=== PATIENT | female | born 1965 | race Caucasian/White ===

== ENCOUNTER 2017-05-03 19:18 | Emergency (ER) | payer SELFPAY ==
[~2017-05-03 19:18] MED LIST: ACID CONTROL20 MG PO; ADVAIR 5001 DISK W/D PO; ALBUTEROL17 G1 IH; ALBUTEROL17 GM INH; ALBUTEROL17 GM NEB; AMOXICILLIN PO; ANTIVERT12.5 MG PO; ATIVAN PO; BACTRIM DS TABL1 TAB PO; BENADRYL25 MG PO; BENZONATATE PO; BUDESONIDE0.5 MG/2 M IH; CALTRATE 600 W-1 TAB PO; CELEXA PO; CELEXA20 MG PO; CENTRUM SILVER PO; CIPRO PO; DARVOCET-N 1001 TAB PO; DOXYCYCLINE150 MG PO; DUONEB 2.5-0.5 M3 ML; DUONEB 2.5-0.5 M3 ML NEB; FIORICET 50-321 EACH PO; FLEXERIL PO; FLEXERIL10 MG PO; HYDROCODON-ACE1 EAC7 PO; KEFLEX500 MG PO; KETOPROFEN PO; LORTAB 10-5001 EACH PO; LORTAB 5/500 TA1 TA1 PO; LORTAB 7.5-5001 TAB PO; MACROBID100 MG DOB; MEDROL PO; MEDROL4 MG/DOSE- PO; MICRO-K10 MEQ PO; OXYGEN 2L; PHENERGAN25 MG PO; PREDNISONE PO; PROTONIX PO; PYRIDIUM100 MG PO; SINGULAIR PO; SYNTHROID88 MCG PO; THEOPHYLLIN PO; ULTRAM PO; VICODIN 5/1 TAB 5/50 PO; VICODIN 5/500 T1 TAB PO; VICODIN PO; VITAMIN D-32000 UNIT PO; ZANTAC150 MG PO; ZITHROMAX PO; ZOFRAN PO
[2017-05-03 22:02] LABS: BASOPHIL% 0.4 % (0-2.5); EOSINOPHIL# 0.2 X10e3 (0-0.7); EOSINOPHIL% 3.2 % (0.0-7.0); HEMATOCRIT 42.2 % (35.0-45.0); LYMPHOCYTE# 2.7 X10e3 (1.0-3.5); LYMPHOCYTE% 47.8 % (17.0-45.0); MEAN CORPUSCULAR HEMOGLOBIN 31.6 PG (28-34); MEAN CORPUSCULAR HGB CONC 33.2 g/dL (30-36); MEAN PLATELET VOLUME 7.8 FL (6.5-11.5); MONOCYTE# 0.6 X10e3 (0-1.0); MONOCYTE% 9.9 % (3.0-12.0); NEUTROPHIL# 2.2 X10e3 (1.5-7.1); NEUTROPHIL% 38.7 % (40-75); PLATELET COUNT 139 X10e3 (140-420); RED BLOOD COUNT 4.44 X10e (3.90-5.30); RED CELL DISTRIBUTION WIDTH 14.7 % (11.0-15.5); WHITE BLOOD COUNT 5.7 X10e3 (4.0-10.5)
[2017-05-03 22:09] LABS: DIFF IND NO
[2017-05-03 22:41] LABS: ALBUMIN SERUM 3.8 g/dL (3.5-5.0); BILIRUBIN, DIRECT 0.1 mg/dL (0.0-0.2); BILIRUBIN,INDIRECT 0.7 mg/dL (0.0-0.9); BILIRUBIN,TOTAL 0.8 mg/dL (0.2-2.0); BUN/CREATININE RATIO 15.55; CALCIUM SERUM 9.3 mg/dL (8.4-10.2); CREATININE SERUM 0.9 mg/dL (0.6-1.4); MAGNESIUM 1.9 mg/dL (1.6-3.0); PROTEIN TOTAL SERUM 7.5 g/dL (6.0-8.3)
[2017-05-03 22:43] LABS: URINE SOURCE CLEAN CATCH
[2017-05-03 22:49] LABS: URINE APPEARANCE CLEAR; URINE BILIRUBIN NEG (NEG); URINE BLOOD NEG (NEG); URINE COLOR DK YELLOW; URINE GLUCOSE NEG (NEG); URINE KETONE NEG (NEG); URINE LEUKOCYTE ESTERASE NEG (NEG); URINE NITRATE NEG (NEG); URINE PROTEIN NEG (NEG); URINE SPECIFIC GRAVITY 1.022 (1.003-1.035)
[2017-05-03 22:54] LABS: CULTURE INDICATED? NO
== END 2017-05-03 23:53 | disposition home or self-care (01) ==
LOC: CED 19:18
PROVIDERS: Student in an Organized Health Care Education/Training Program
DX: F11.23 Opioid dependence with withdrawal (principal); J44.9 Chronic obstructive pulmonary disease, unspecified; Z88.2 Allergy status to sulfonamides; Z88.8 Allergy status to other drugs, medicaments and biological substances; F17.200 Nicotine dependence, unspecified, uncomplicated
CPT/HCPCS: 80048; 80076; 81003; 83690; 83735; 85025; 96361; 96374; 99284; J2405

== ENCOUNTER 2017-06-19 19:56 | Inpatient (IN) | payer OTHER ==
[~2017-06-19] VITALS: Ht 157.5 cm; Wt 66.2 kg
--- NOTE | ~2017-06-19 | NM21 ---
[facility] A Service of [facility] & [facility] RADIOLOGY TEXT RESULTS PATIENT: JULES LING LOCATION: A 216-01 : 63 UNIT #: [id number] AGE: [address]: Fox Mejia MD SEX: F ORDER DR: [id number] [facility] [address] [place], [place] [address] [id number] I MR#: [id number] #: [id number] NAME: JULES LING : 1965 SEX: F STUDY DATE/TIME: 06/21/2017 13:12 UNIT: A ROOM: [facility] STUDY DESCRIPTION: NM Hepatobiliary W GB Attending Physician: Fox Mejia M.D. Ordering Physician: Fox Mejia M.D. Primary Care Physician: Basilio Dewey M.D. MEDICAL IMAGING REPORT This report is preliminary unless electronic signature is present EXAM Hepatobiliary scan with gallbladder stimulation, 06/21/2017. HISTORY Right upper quadrant pain, abdominal pain beginning 2 days ago. Elevated liver enzymes. Distended gallbladder seen on ultrasound. TECHNIQUE Patient was given 4.8 mCi of technetium-99m Choletec. FINDINGS There is normal distribution throughout the liver. There is prompt visualization of the gallbladder, common bile duct, and small bowel. IMPRESSION Normal study. There is no evidence of cholecystitis. Dictated by... Luis Alberto Church M.D. THIS IS AN ELECTRONICALLY VERIFIED REPORT Luis Alberto Church M.D. at 06/22/2017 9:36 PM Linh TD: 06/22/2017 09:27 JOB #: [id number] MEDICAL IMAGING REPORT Page 1 of 1 COPY
--- NOTE | ~2017-06-19 | CT2 ---
[facility] A Service of [facility] & [facility] RADIOLOGY TEXT RESULTS PATIENT: JULES LING LOCATION: A 216-01 : 63 UNIT #: [id number] AGE: [address]: Fox Mejia MD SEX: F ORDER DR: [id number] [facility] [address] [place], [place] [address] [id number] E MR#: [id number] Acc #: [id number] NAME: JULES LING : 1965 SEX: F STUDY DATE/TIME: 06/20/2017 00:15 UNIT: JESSICA ROOM: STUDY DESCRIPTION: CT Abd and Pelv W Cont Attending Physician: Abraham Ramsay M.D. Ordering Physician: Jose Serna M.D. Primary Care Physician: Basilio Dewey M.D. MEDICAL IMAGING REPORT This report is preliminary unless electronic signature is present EXAM CT abdomen and pelvis, 06/20 at 00:15 INDICATIONS Mid abdominal pain today with nausea, vomiting and diarrhea. TECHNIQUE Axial images were obtained through the abdomen and pelvis following oral and IV contrast administration. Multiplanar reformats were obtained. Comparison made with 01/17/2015. This CT exam was performed with one or more of the following radiation dose reduction techniques: Automatic exposure control, adjustment of mA and/or kV according to patient size, and iterative reconstruction. FINDINGS ABDOMEN: Lung bases are clear. There is distension of the gallbladder with some adjacent fluid. There is some periportal edema in the debi hepatis. This may reflect some local inflammation. Consider gallbladder ultrasound for follow up. There is a small right renal cyst. There is subtle fat stranding extending from the debi hepatis toward the left side of the upper abdomen. No fluid collections are seen. The GI tract is normal. PELVIS: Urinary bladder is normal. Uterus is surgically absent. GI tract, including the appendix, is normal. IMPRESSION 1. The gallbladder is distended and there is some adjacent fluid. There is periportal edema in the liver. There is also some mild fat stranding that extends from the debi hepatis toward the left side of the upper abdomen. Findings could reflect acute cholecystitis. Consider gallbladder ultrasound for followup. Correlation with LFTs is recommended. No fluid collections are seen. The stranding [facility] A Service of [facility] RADIOLOGY TEXT RESULTS PATIENT: JULES LING LOCATION: C2A 216-01 : 63 UNIT #: [id number] AGE: [address]: Fox Mejia MD SEX: F ORDER DR: appears away from the pancreas. There is no CT evidence of pancreatitis. 2. The GI tract, including the appendix, is normal. 3. Hysterectomy. 4. Not mentioned above, mild hepatomegaly. Dictated by... Guy Nunez Jr., M.D. THIS IS AN ELECTRONICALLY VERIFIED REPORT Guy Nunez Jr., M.D. at 06/20/2017 6:54 AM JAYLEN/alta TD: 06/20/2017 02:04 JOB #: [id number] MEDICAL IMAGING REPORT Page 1 of 1 COPY
--- NOTE | ~2017-06-19 | CO ---
Unit #: [id number] #: [id number] Patient: JULES LING [id number] [address] [address] [id number] I MR#: [id number] NAME: JULES LING ROOM: 216 Age: 52 Sex: F Admission Date: 06/20/2017 : 1965 Attending Physician: Fox Mejia M.D. Primary Care Physician: Basilio Dewey M.D. Consultation Date: 06/20/2017 CONSULTATION REPORT BRIEF HISTORY The patient is a 52-year-old lady who presents with a 24-hour history of right upper quadrant epigastric abdominal pain, some nausea, vomiting. No fever. No chills. No history of similar type pain. No trauma. She says her pain is epigastric, radiating to the right upper quadrant, a crampy-type pain. PAST HISTORY COPD. PAST SURGERIES She has had a hysterectomy. MEDICATIONS Home medications are multiple Mini-Nebs. SOCIAL HISTORY Does smoke a pack per day. No alcohol. FAMILY HISTORY Negative for GI malignancy. REVIEW OF SYSTEMS No cardiopulmonary complaints at this time. Ten systems reviewed and negative. PHYSICAL EXAMINATION GENERAL: She is awake, alert, in no distress. VITAL SIGNS: Temperature 98.5, pulse 137, respirations 22. HEENT: Unremarkable. NECK: Neck is supple. No JVD. Trachea midline. LUNGS: Clear to auscultation. Bilateral breath sounds are symmetric. CARDIOVASCULAR: Regular rate and rhythm. ABDOMEN: Soft. It is tender in the right upper quadrant. No rebound. No masses. No point tenderness. No hernias. EXTREMITIES: No clubbing, cyanosis or edema. DIAGNOSTIC STUDIES LABS: Labs show a normal white count, normal hemoglobin. Chemistries show mild elevation of LFTs with normal bilirubin. IMAGING: CT scan shows pericholecystic fluid. No dilatation of the ducts. There is inflammation extending along the debi hepatis toward the midline. Unit #: [id number] #: [id number] Patient: JULES LING ASSESSMENT Biliary etiology versus peptic ulcer disease. More specifically, duodenal ulcer. PLAN Recommend ultrasound, proton pump inhibitors. Would consider EGD. Likely laparoscopic cholecystectomy. Dictated by... Hans Hess TD: 06/20/2017 13:12 JOB #: [id number] CONSULTATION REPORT Page 1 of 1 X Fox Mejia MD CONSULTATION REPORT
--- NOTE | ~2017-06-19 | US67 ---
[facility] A Service of [facility] & [facility] RADIOLOGY TEXT RESULTS PATIENT: JULES LING LOCATION: C2A 216- : 63 UNIT #: [id number] AGE: [address]: Fox Mejia MD SEX: F ORDER DR: [id number] [facility] [address] [place], [place] [address] [id number] I MR#: [id number] Acc #: [id number] NAME: JULES LING : 1965 SEX: F STUDY DATE/TIME: 06/20/2017 7:26 UNIT: C2 ROOM: 216 STUDY DESCRIPTION: US Gallbladder Attending Physician: Fox Mejia M.D. Ordering Physician: Fox Mejia M.D. Primary Care Physician: Basilio Dewey M.D. MEDICAL IMAGING REPORT This report is preliminary unless electronic signature is present EXAM Gallbladder ultrasound. INDICATION Right upper quadrant pain. Patient has CT performed today which showed fluid around the gallbladder. TECHNIQUE Brown-scale and color Doppler sonographic images were obtained of the right upper quadrant. The visualized portion of the pancreas appear unremarkable. The patient does have some hepatomegaly and overall I think hepatic echotexture is somewhat coarsened. Gallbladder does appear distended but I do not see any stones or sludge within it. There is gallbladder wall edema and some pericholecystic fluid. Common bile duct and measures up to 8 mm, right kidney is normal in appearance with no solid or cystic renal masses seen and no hydronephrosis identified. Liver is enlarged measuring up to 17.3 cm in craniocaudal dimensions. IMPRESSION 1. No stones or sludge are seen within the gallbladder but the gallbladder does appear distended with some gallbladder wall edema and pericholecystic fluid. Findings are nonspecific. The patient also appears to have some hepatomegaly and coarsening of hepatic echotexture which could reflect some hepatitis, which could also result in gallbladder wall edema and periportal edema. Correlation with liver function tests is recommended. Given somewhat ambiguous findings within the gallbladder, further evaluation with HIDA scan is recommended. 2. Patient's common bile duct is mildly dilated. Again correlation with liver function test is suggested. Dictated by... [facility] A Service of [facility] RADIOLOGY TEXT RESULTS PATIENT: JULES LING LOCATION: [facility] 216-01 : 63 UNIT #: [id number] AGE: [address]: Fox Mejia MD SEX: F ORDER DR: Cathi Johnson M.D. THIS IS AN ELECTRONICALLY VERIFIED REPORT Cathi Johnson M.D. at 06/20/2017 4:44 PM AFF/dj TD: 06/20/2017 11:53 JOB #: [id number] MEDICAL IMAGING REPORT Page 1 of 1 COPY
--- NOTE | ~2017-06-19 | EKG ---
PATIENT: JULES LING UNIT #: [id number] Ventricular Rate: 123 BPM Atrial Rate: 123 BPM P-R Interval: 114 ms QRS Duration: 74 ms Q-T Interval: 308 ms QTC Calculation(Bezet): 440 ms P [place]: 71 degrees Calculated R [place]: 54 degrees Calculated T [place]: 48 degrees Diagnosis Line: Sinus tachycardia Diagnosis Line: Possible Left atrial enlargement Diagnosis Line: Borderline ECG Diagnosis Line: Diagnosis Line: Confirmed by MARLEN CONTRERAS MD ([id number]) on Diagnosis Line: 06/20/2017 7:31:55 AM INTERPRETING MD: BEN LANDIN
--- NOTE | ~2017-06-19 | DS ---
Unit #: [id number] #: [id number] Patient: JULES LING [id number] [address] [address] [id number] I MR#: [id number] NAME: JULES LING ROOM: 216 Age: 52 Sex: F Admission Date: 06/20/2017 : 1965 Discharge Date: 06/22/2017 Attending Physician: Fox Mejia M.D. Primary Care Physician: Basilio Dewey M.D. DISCHARGE SUMMARY HOSPITAL COURSE The patient is a 52-year-old lady who presented for abdominal pain. Her CT scan showed inflammation around the gallbladder as well as the duodenum stomach. She was admitted to the hospital for suspicion of possible biliary disease. She was started on antibiotics and underwent EGD and was found to have multiple gastric ulcers. Biopsies were obtained. Subsequent HIDA scan revealed functional gallbladder. She was started on proton pump inhibitors, for which she improved. She was advanced to a regular diet. DISPOSITION The patient is discharged home. DIET Regular diet as tolerated. ACTIVITY Discussed. FOLLOWUP She is to follow up on a p.r.n. basis. DISCHARGE MEDICATIONS 1. Nexium 40 mg daily. 2. [place] 7.5 mg q.6 h. p.r.n. 3. Continue home medications. Dictated by... Fox Mejia M.D. JNO/hansel TD: 06/22/2017 07:49 JOB #: [id number] Unit #: [id number] #: [id number] Patient: JULES LING DISCHARGE SUMMARY Page 1 of 1 X Fox Mejia MD X DISCHARGE SUMMARY
--- NOTE | ~2017-06-19 | OR ---
Unit #: [id number] #: [id number] Patient: JULES LING [id number] [address] [place], [place] [address] [id number] I MR#: [id number] NAME: JULES LING ROOM: 216 Date of Procedure: 06/20/2017 Admission Date: 06/20/2017 Surgeon: Cayden Moscoso Jr., M.D. : 1965 Attending Physician: Fox Mejia M.D. Primary Care Physician: Basilio Dewey M.D. OPERATIVE REPORT INDICATION FOR PROCEDURE The patient is a 52-year-old white female, who was admitted complaining of severe mid epigastric abdominal pain with nausea. She has had a workup and there was a question of whether she may have cholecystitis, although she has no gallstones. She had inflammation around the area of the duodenum and no evidence of any pancreatitis. It was felt she needed upper endoscopy before considering any laparoscopic cholecystectomy. She is brought to the endoscopy suite at this time for upper endoscopy at her request. She understands the procedure including the risks and consents. PREOPERATIVE DIAGNOSIS Possible occult ulcer disease. POSTOPERATIVE DIAGNOSES Mild gastritis with 2 small gastric ulcers in the antrum with no other abnormalities. ANESTHESIA MAC anesthesia. PROCEDURE PERFORMED Flexible fiberoptic esophagogastroduodenoscopy with biopsies of the antrum for Helicobacter pylori and biopsies of antral ulcers for pathology. DESCRIPTION OF PROCEDURE The patient was positioned in Renteria position with left side down. After being given MAC anesthesia, the Olympus XQ scope was passed in the proximal esophagus. The entire esophagus was examined and there was no evidence of any esophagitis or stenosis. The scope was advanced through the GE junction and the cardia, and down to the fundic and antral region of the stomach, retroflexed back up to the area of the cardia, there was no hiatal hernia present. The stomach distended well without evidence of rigidity. The scope was advanced down the prepyloric region. There was some mild and moderate gastritis involving the cardia, fundic, and antral region. A biopsy was taken from antrum for H pylori without significant bleeding. There were 2 small linear ulcers in the antrum. Biopsies were taken from these without significant bleeding for pathology. The scope was advanced through the pylorus and the duodenal bulb and down to the second portion of the duodenum. The entire duodenal portion examination was within normal limits. The scope was slowly removed. The patient tolerated the procedure well and discharged back to floor in satisfactory condition. Unit #: [id number] #: [id number] Patient: JULES LING Dictated by... Cayden Moscoso Jr., M.D. JMB/wilber TD: 06/20/2017 13:21 JOB #: [id number] CC: Basilio Dewey M.D. OPERATIVE REPORT Page 1 of 1 X Cayden Moscoso MD X PROCEDURE OPERATIVE NOTE
[2017-06-19 22:21] LABS: BASOPHIL% 0.3 % (0-2.5); EOSINOPHIL% 0.5 % (0.0-7.0); HEMATOCRIT 47.7 % (35.0-45.0); LYMPHOCYTE# 0.3 X10e3 (1.0-3.5); MEAN CELL VOLUME 95.1 FL (83-96); MEAN CORPUSCULAR HEMOGLOBIN 31.8 PG (28-34); MEAN CORPUSCULAR HGB CONC 33.5 g/dL (30-36); MONOCYTE% 0.5 % (3.0-12.0); NEUTROPHIL# 3.9 X10e3 (1.5-7.1); NEUTROPHIL% 92.7 % (40-75); PLATELET COUNT 109 X10e3 (140-420); RED BLOOD COUNT 5.01 X10e (3.90-5.30); RED CELL DISTRIBUTION WIDTH 14.7 % (11.0-15.5); WHITE BLOOD COUNT 4.2 X10e3 (4.0-10.5)
[2017-06-19 22:22] LABS: DIFF IND NO
[2017-06-19 22:27] LABS: POC - TROPONIN <0.05 ng/mL (<=0.05)
[2017-06-19 22:49] LABS: ALBUMIN SERUM 3.8 g/dL (3.5-5.0); BILIRUBIN, DIRECT 0.9 mg/dL (0.0-0.2); BILIRUBIN,INDIRECT 1.1 mg/dL (0.0-0.9); BUN/CREATININE RATIO 12.5; CALCIUM SERUM 9.5 mg/dL (8.4-10.2); CREATININE SERUM 0.8 mg/dL (0.6-1.4); GLOM FILT RATE Estimated 84.2 mL/min (>60); POTASSIUM 3.7 mmol/L (3.5-5.1); PROTEIN TOTAL SERUM 7.7 g/dL (6.0-8.3)
[2017-06-20 00:24] LABS: POC - CKMB <1.0 ng/mL (0.0-7.9); POC - TROPONIN <0.05 ng/mL (<=0.05)
[2017-06-20] MEDS ORDERED: COMBIVENT U/D3 M3 INH (04:30)
[2017-06-20] MEDS ORDERED: ALBUTEROL17 GM INH (04:31)
[2017-06-22] MEDS ORDERED: NORCO 7.5-3251 EACH PO (07:24)
[2017-06-22] MEDS ORDERED: NEXIUM PO (07:24)
== END 2017-06-22 09:00 | disposition home or self-care (01) | DRG 384 ==
LOC: CED 19:56 → C2A 06-20 02:15 → CEDOF 06-20 02:15 → C2A 06-20 02:39 → CED 06-20 02:39 → C2A 06-20 03:42 → CEDOF 06-20 03:42 → C2A 06-22 09:00
PROVIDERS: Emergency Medicine; Surgery
PROC: 0DB78ZX Excision of Stomach, Pylorus, Via Natural or Artificial Opening Endoscopic, Diagnostic (ICD-10-PCS; principal; 2017-06-20 12:11)
PROC: 05H333Z Insertion of Infusion Device into Right Innominate Vein, Percutaneous Approach (ICD-10-PCS; 2017-06-21)
PROC: B54MZZA Ultrasonography of Right Upper Extremity Veins, Guidance (ICD-10-PCS; 2017-06-21)
DX: K25.9 Gastric ulcer, unspecified as acute or chronic, without hemorrhage or perforation (principal); J44.9 Chronic obstructive pulmonary disease, unspecified; K29.50 Unspecified chronic gastritis without bleeding; Z88.5 Allergy status to narcotic agent; Z88.2 Allergy status to sulfonamides; Z88.8 Allergy status to other drugs, medicaments and biological substances; F17.210 Nicotine dependence, cigarettes, uncomplicated; Z90.710 Acquired absence of both cervix and uterus
CPT/HCPCS: 36415; 74177; 76705; 78226; 80048; 80076; 82150; 82553; 83690; 84484; 85025; 87077; 88305; 88312; 93005; 94640; 94664; 94760; 96361; 96374; 96375; 96376; 99285; A9537; C9113; J2270; J2405; J2543; Q9967

== ENCOUNTER 2017-07-19 18:38 | Emergency (ER) | payer OTHER ==
[~2017-07-19] VITALS: Ht 157.5 cm; Wt 66.2 kg
--- NOTE | ~2017-07-19 | CR127 ---
[facility] A Service of [facility] & [facility] RADIOLOGY TEXT RESULTS PATIENT: JULES LING LOCATION: CFTX : 63 UNIT #: [id number] AGE: [address]: PATRICK MOODY APRN SEX: F ORDER DR: [id number] [facility] [address] [place], [place] [address] [id number] E MR#: [id number] Acc #: [id number] NAME: JULES LING : 1965 SEX: F STUDY DATE/TIME: 07/19/2017 19:04 UNIT: TX ROOM: STUDY DESCRIPTION: CR Foot Complete Min 3 View Rt Attending Physician: Patrick Moody Aprn Ordering Physician: Codie Dior P.A.-C. Primary Care Physician: Basilio Dewey M.D. MEDICAL IMAGING REPORT This report is preliminary unless electronic signature is present EXAM Right foot, 07/19/2017 HISTORY 52-year-old female with right foot pain near the second and third digits after injuring foot while walking 2 days ago. COMPARISON Right foot, 10/01/2012 FINDINGS Three views of the right foot demonstrate a very small avulsion fracture along the dorsal base of the second distal phalanx. No dislocation. No other acute fracture or dislocation. Soft tissues are unremarkable. IMPRESSION Very small avulsion fracture involving the dorsal base of the second distal phalanx. No dislocation. Dictated by... Phil Myrick M.D. THIS IS AN ELECTRONICALLY VERIFIED REPORT Phil Myrick M.D. at 07/21/2017 10:50 AM Anh TD: 07/20/2017 19:12 JOB #: [id number] MEDICAL IMAGING REPORT Page 1 of 1 COPY
[~2017-07-19 18:38] MED LIST changes: +COMBIVENT U/D3 M3 INH; +NEXIUM PO; +NORCO 7.5-3251 EACH PO
== END 2017-07-19 20:30 | disposition home or self-care (01) ==
LOC: CED 18:38 → CFTX 18:38
DX: S92.531A Displaced fracture of distal phalanx of right lesser toe(s), initial encounter for closed fracture (principal); F41.9 Anxiety disorder, unspecified; J44.9 Chronic obstructive pulmonary disease, unspecified; F17.210 Nicotine dependence, cigarettes, uncomplicated; Z87.442 Personal history of urinary calculi; Z88.2 Allergy status to sulfonamides; Z88.5 Allergy status to narcotic agent; Z88.8 Allergy status to other drugs, medicaments and biological substances; X58.XXXA Exposure to other specified factors, initial encounter; Y92.009 Unspecified place in unspecified non-institutional (private) residence as the place of occurrence of the external cause
CPT/HCPCS: 29515; 73630; 99283